=== PATIENT | female | born 1995 | race African-American/Black ===

== ENCOUNTER 2019-07-22 18:39 | Emergency (ER) | payer OTHER ==
[~2019-07-22] VITALS: Ht 142.2 cm; Wt 67.1 kg
[2019-07-22 20:07] LABS: PLATELET COUNT 186 K/uL (152-353)
[2019-07-22 20:09] LABS: POTASSIUM 3.6 mmol/L (3.6-5.2)
[2019-07-22 22:25] VITALS: BP 111/65; TEMP 98.7
== END 2019-07-22 22:25 | disposition home or self-care (01) ==
LOC: ED 18:39
PROVIDERS: Emergency Medicine
DX: J02.9 Acute pharyngitis, unspecified (principal); J06.9 Acute upper respiratory infection, unspecified; Z3A.37 37 weeks gestation of pregnancy; U07.1 COVID-19
CPT/HCPCS: 80053; 85027; 87502; 87635; 87651; 99283; U0002